=== PATIENT | female | born 1955 | race Caucasian/White ===

== ENCOUNTER → 2025-03-17 16:10 | Outpatient (REF) | payer MEDICARE, OTHER, SELFPAY | LOC: WDC 16:10 | PROVIDERS: ATTENDING PHYSICIAN Obstetrics & Gynecology; FAMILY PHYSICIAN Internal Medicine | DX: N93.0 Postcoital and contact bleeding (principal); Z12.31 Encounter for screening mammogram for malignant neoplasm of breast | CPT/HCPCS: 76830; 76856; 77063; 77067 ==